=== PATIENT | male | born 2000 | race Two or more races ===

== ENCOUNTER 2024-04-26 14:25 | Emergency (ER) | payer SELFPAY ==
[~2024-04-26] VITALS: Ht 170.2 cm; Wt 71.0 kg
[2024-04-26 14:28] VITALS: O2SAT 96
[2024-04-26 15:26] VITALS: BP 92/48; PULSE 79; RESP 18; TEMP 36.72516; O2SAT 100
[2024-04-26 18:01] LABS: BASOPHILS % 0.4 % (0.0-2.0); EOSINOPHILS % 0.7 % (0.0-5.0); HEMATOCRIT. 47.2 % (42.0-52.0); HEMOGLOBIN. 15.9 g/dL (14.0-18.0); LYMPHOCYTES % 16.5 % (20.0-50.0); MEAN CORPUSCULAR HEMOGLOBIN 29.7 pg (28.0-32.0); MEAN CORPUSCULAR HGB CONC 33.6 g/dL (31.0-37.0); MEAN CORPUSCULAR VOLUME 88.2 fL (80.0-94.0); MONOCYTES % 10.2 % (2.0-8.0); NEUTROPHILS % 72.2 % (40.0-76.0); PLATELET 328 x1000/uL (130-400); RED BLOOD CELL COUNT 5.35 mill/uL (4.7-6.1); RED CELL DISTRIBUTION WIDTH 13.4 % (11.6-14.6); WHITE BLOOD COUNT 10.4 x1000/uL (4.5-11.0)
[2024-04-26 18:15] LABS: CHLORIDE 104 mEq/L (98-107); POTASSIUM 4.4 mEq/L (3.5-5.1); SODIUM 138 mEq/L (136-145)
[2024-04-26 18:16] LABS: CALCIUM 9.9 mg/dL (8.7-10.4); CARBON DIOXIDE 17 mEq/L (21-32)
[2024-04-26 18:20] LABS: TROPONIN I HIGH SENSITIVITY 6 ng/L (3.0-53)
[2024-04-26 18:21] LABS: GLUCOSE 63 mg/dL (70-105); UREA NITROGEN BLOOD 13 mg/dL (9-23)
[2024-04-26 18:23] LABS: ACETAMINOPHEN < 2 ug/mL (10-30)
[2024-04-26 18:32] LABS: ETHANOL BLOOD < 10 mg/dL (<10)
[2024-04-26 19:14] LABS: AMMONIA < 17 uMol/L (<32)
[2024-04-26] MEDS ORDERED: SODIUM CHLORIDE 0.9% 1,000 ML IV ONE (20:30)
== END 2024-04-27 10:57 | disposition home or self-care (01) ==
LOC: EDBD 14:25 → ER 14:25
DX: R41.82 Altered mental status, unspecified (principal); Z59.00 Homelessness unspecified
CPT/HCPCS: 80048; 80307; 80329; 80320; 82140; 85025; 84484; 36415; 71045; 70450; 93005; 99285; J7030; G0480